=== PATIENT | male | born 1970 | race Caucasian/White ===

== ENCOUNTER 2020-06-12 12:04 | Emergency (ER) | payer OTHER ==
[~2020-06-12] VITALS: Ht 182.9 cm; Wt 136.3 kg
[2020-06-12 12:39] VITALS: BP 133/85
[2020-06-12] MEDS ORDERED: PROCHLORPERAZINE 10 MG/2 ML VIAL. IV ONE (13:45)
[2020-06-12] MEDS ORDERED: IV NORMAL SALINE 1,000ML 1,000 ML IV ONE (13:45)
--- NOTE | 2020-06-12 14:06 | RAD ---
RS Compliance Statement: One or more of the following individualized dose reduction techniques were utilized for this examination: 1. Automated exposure control 2. Adjustment of the mA and/or kV according to patient size 3. Use of iterative reconstruction technique CT head without contrast 06/12/2020 1:42 PM INDICATION: Headache COMPARISON: None available TECHNIQUE: Multiple axial CT images of the head were obtained from skull base through the vertex without intravenous contrast. FINDINGS: Head: Ventricles, sulci and basal cisterns are within normal limits. There is no hydrocephalus. Teran-white matter differentiation is normal. There is no acute intracranial hemorrhage. There is no mass, mass effect or midline shift. Posterior fossa is normal in appearance. Visualized portions of the orbits are normal. Paranasal sinuses are well aerated. Mastoid air cells are well aerated. Scalp and calvaria are normal. IMPRESSION: No acute intracranial hemorrhage. Electronically signed by: Mitra Barcenas MD (06/12/2020 2:03 PM) [id number]
[2020-06-12] MEDS ORDERED: KETOROLAC 30 MG/ML VIAL. IVP ONE (14:15)
[2020-06-12 14:24] LABS: BASO # 0.1 x10^3/uL (0.0-0.2); BASO % 1 % (0-3); EOS # 0.1 x10^3/uL (0.0-0.7); EOS % 2 % (0-3); HEMATOCRIT 43.3 % (39.0-53.0); HEMOGLOBIN 14.2 g/dL (13.0-17.5); LYMPH # 1.4 x10^3/uL (1.0-4.8); LYMPH % 29 % (24-48); MEAN CORPUSCULAR HEMOGLOBIN 29 pg (25-35); MEAN CORPUSCULAR HGB CONC 33 g/dL (31-37); MEAN CORPUSCULAR VOLUME 90 fL (79-100); MONO # 0.5 x10^3/uL (0.0-1.1); MONO % 10 % (0-9); NEUT # 2.8 x10^3uL (1.8-7.7); NEUT % 58 % (31-73); PLATELET COUNT 298 x10^3/uL (140-400); RED BLOOD COUNT 4.84 x10^6/uL (4.30-5.70); RED CELL DISTRIBUTION WIDTH 13.2 % (11.5-14.5); WHITE BLOOD COUNT 4.9 x10^3/uL (4.0-11.0)
[2020-06-12] MEDS ORDERED: ONDA4TAB12 PO (14:29)
--- NOTE | 2020-06-12 14:29 | PHYS DOC ---
Past History Past Medical History: Anxiety, Depression, Migraines Past Surgical History: No Surgical History Alcohol Use: None Adult General Chief Complaint Chief Complaint: NAUSEA/VOMITING/DIARRHEA HPI HPI Patient is a 50-year-old male patient who presents to the ED today complaining of a 7 out of 10 frontal headache that began this morning when he got up. Patient is also complaining of nausea and vomiting. He has history of depression and anxiety. He states he has had similar headaches before and he typically gets a shot of Toradol. He states the only unusual thing today the headache has nausea and vomiting. Denies any vision changes. Denies any chest pain or shortness of breath. States light makes the headache worse. Review of Systems Review of Systems Constitutional: Denies fever or chills [] Eyes: Denies change in visual acuity, redness, or eye pain [] HENT: Denies nasal congestion or sore throat [] Respiratory: Denies cough or shortness of breath [] Cardiovascular: No additional information not addressed in HPI [] GI: Reports nausea and vomiting. Denies abdominal pain, bloody stools or diarrhea [] : Denies dysuria or hematuria [] Musculoskeletal: Denies back pain or joint pain [] Integument: Denies rash or skin lesions [] Neurologic: Reports headache, denies focal weakness or sensory changes [] All other systems were reviewed and found to be within normal limits, except as documented in this note. Current Medications Current Medications Current Medications Medications (Trade) Dose Ordered Sig/Xavi Start Time Stop Time Status Last Admin Dose Admin Ketorolac Tromethamine (Toradol 30mg Vial) 30 mg 1X ONCE 06/12/20 14:15 06/12/20 14:21 DC Prochlorperazine Edisylate (Compazine) 10 mg 1X ONCE 06/12/20 13:45 06/12/20 13:52 DC 06/12/20 13:45 10 MG Sodium Chloride 1,000 ml @ 1,000 mls/hr 1X ONCE 06/12/20 13:45 06/12/20 14:44 06/12/20 13:45 1,000 MLS/HR Allergies Allergies Allergies Coded Allergies Type Severity Reaction Last Updated Verified latex Allergy Unknown 06/12/20 Yes Physical Exam Physical Exam Constitutional: Well developed, well nourished, no acute distress, non-toxic appearance. [] HENT: Normocephalic, atraumatic, bilateral external ears normal, oropharynx moist, no oral exudates, nose normal. [] Eyes: PERRLA, EOMI, conjunctiva normal, no discharge. [] Neck: Normal range of motion, no tenderness, supple, no stridor. [] Cardiovascular:Heart rate regular rhythm, no murmur [] Lungs & Thorax: Bilateral breath sounds clear to auscultation [] Abdomen: Bowel sounds normal, soft, no tenderness, no masses, no pulsatile masses. [] Skin: Warm, dry, no erythema, no rash. [] Back: No tenderness, no CVA tenderness. [] Extremities: No tenderness, no cyanosis, no clubbing, ROM intact, no edema. [] Neurologic: Alert and oriented X 3, normal motor function, normal sensory function, no focal deficits noted. Cranial nerves II through XII intact Psychologic: Affect normal, judgement normal, mood normal. [] Current Patient Data Vital Signs Vital Signs Date Time Temp Pulse Resp B/P (MAP) Pulse Ox O2 Delivery O2 Flow Rate FiO2 06/12/20 12:39 97.8 75 16 133/85 (101) 98 Room Air EKG EKG [] Radiology/Procedures Radiology/Procedures []PROCEDURE: CT HEAD WO CONTRAST PQRS Compliance Statement: One or more of the following individualized dose reduction techniques were utilized for this examination: 1. Automated exposure control 2. Adjustment of the mA and/or kV according to patient size 3. Use of iterative reconstruction technique CT head without contrast 06/12/2020 1:42 PM INDICATION: Headache COMPARISON: None available TECHNIQUE: Multiple axial CT images of the head were obtained from skull base through the vertex without intravenous contrast. FINDINGS: Head: Ventricles, sulci and basal cisterns are within normal limits. There is no hydrocephalus. Teran-white matter differentiation is normal. There is no acute intracranial hemorrhage. There is no mass, mass effect or midline shift. Posterior fossa is normal in appearance. Visualized portions of the orbits are normal. Paranasal sinuses are well aerated. Mastoid air cells are well aerated. Scalp and calvaria are normal. IMPRESSION: No acute intracranial hemorrhage. Electronically signed by: Savage Kemp MD (06/12/2020 2:03 PM) [id number] DICTATED AND SIGNED BY: SAVAGE KEMP MD DATE: 06/12/20 2541 CC: TONI MAURER DO; BRIAN TALAVERA APRN; PCP,UNKNOWN ~ Heart Score Risk Factors: Risk Factors: DM, Current or recent (<one month) smoker, HTN, HLP, family history of CAD, obesity. Risk Scores: Risk Factors: DM, Current or recent (<one month) smoker, HTN, HLP, family history of CAD, obesity. Course & Med Decision Making Course & Med Decision Making Pertinent Labs and Imaging studies reviewed. (See chart for details) This is a 50-year-old male patient presenting to the ED today with a headache that began this morning. Had similar headaches before. Was requesting Toradol. Considering his age we did a CAT scan of the head which was negative. He was given Toradol and Solu-Medrol as well as Compazine, discharged to home. Follow- up with his own doctor next week Dragon Disclaimer Dragon Disclaimer This electronic medical record was generated, in whole or in part, using a voice recognition dictation system. Departure Departure: Impression: Primary Impression: Headache Disposition: 01 DC HOME SELF CARE/HOMELESS Condition: STABLE Referrals: PCP,UNKNOWN (PCP) follow up with your doctor next week Patient Instructions: Headache, FAQs Additional Instructions: You were seen for a headache in the emergency room. Your CAT scan of the head was negative. Please follow-up with your doctor next week. Come back to the ED at any point symptoms worsen. Scripts Ondansetron (ONDANSETRON ODT) 4 Mg Tab.rapdis 1 TAB PO PRN Q6-8HRS, #16 TAB Prov: BRIAN TALAVERA APRN 06/12/20 Problem Qualifiers Primary Impression: Headache Headache type: unspecified Headache chronicity pattern: acute headache Intractability: not intractable Qualified Codes: R51.9 - Headache, unspecified BRIAN TALAVERA APRN Jun 12, 2020 14:29
[2020-06-12 14:32] LABS: CALCIUM 9.2 mg/dL (8.5-10.1); CREATININE 1.3 mg/dL (0.7-1.3); GFR 58.7; POTASSIUM 4.1 mmol/L (3.5-5.1)
[2020-06-12 14:39] LABS: ALBUMIN 3.9 g/dL (3.4-5.0); ALBUMIN/GLOBULIN RATIO 1.1 (1.0-1.7); TOTAL BILIRUBIN 0.4 mg/dL (0.2-1.0); TOTAL PROTEIN 7.6 g/dL (6.4-8.2)
== END 2020-06-12 14:37 | disposition home or self-care (01) ==
LOC: ER 12:04
DX: G43.909 Migraine, unspecified, not intractable, without status migrainosus (principal); R11.2 Nausea with vomiting, unspecified; F41.9 Anxiety disorder, unspecified; F32.9 Major depressive disorder, single episode, unspecified; Z91.040 Latex allergy status
CPT/HCPCS: 36415; 70450; 80053; 85025; 96361; 96374; 96375; 99284; G0480; J0780; J1885; J7030